=== PATIENT | female | born 1990 | race Caucasian/White ===

== ENCOUNTER 2016-08-30 00:50 | Inpatient (IN) | payer SELFPAY ==
[~2016-08-30] VITALS: Ht 165.1 cm; Wt 90.5 kg
[2016-08-30 01:01] VITALS: Ht 165.1 cm; Wt 90.5 kg
[2016-08-30 01:14] VITALS: BP 155/107; PULSE 76; RESP 18
[2016-08-30] MEDS ORDERED: PREN1TAB62 PO (01:15)
--- NOTE | 2016-08-30 01:43 | HP ---
Date/Time of Note Date/Time of Note DATE: 08/30/16 TIME: 01:36 OB - History Hx of Present Free Text/Dictation 26yo at 39+6 presenting with painful UCs since 1999 yesterday. Reports normal FM, denies MUNOZ, visual changes, RUQ pain, LOF or VB. care notable for LTC in 3rd trimester and polyhydramnios which resolved. Normal GLT Hx of NSVDx3 w/o complications Hx of open cholecystectomy in 2013 in [place] Estimated Due Date: Aug 31, 2016 : 4 Para: 3 Care: Limited Care Obstetrical Complications: None Medical Complications: None Past Family/Social History * Past Medical, Surgical, Family and Obstetric Histories reviewed from chart. Blood Type: A+ Rubella: immune RPR/VDRL: Negative GBS Status: Negative (07/27/16) HBsAG: Negative OB Admission Exam Vital Signs Vital Signs T 98.3 BP 155/107-> 130/91 P 76 RR 18 Physical Exam HEENT: WNL Heart: Rhythm Normal Lungs: Clear Abdomen: WNL Extremities: Normal Reflexes: Normal (2+) Cervical Dilatation: 4cm Effacement: 50% Station: -3 Membranes: Intact (BBOW) Heart Rate: 130's Accelerations: Accelerations Present Decelerations: Variable Decelerations (x1) Varibility: Moderate Contractions on Admission: < 5 Minutes Apart OB Assessment/Plan Other Assessment: Multiparous at Term Early Labor Elevated BPs w/o sxs of PreEclampsia Other plan: Expectant labor management CEFM and toco PIH Labs and urinalysis ordered for new onset elevated BPs ( chart reviewed and BPs wnl during limited clinic visits) No indication for seizure ppx with Magnesium Sulfate at this time. Will consider if BPs worsen, pt begins to have sxs or based on lab results No indication for GBS ppx at this time. GBS expires tomorrow on 08/31/16 Pt made aware of options for pain control and will decide as labor progresses Plan d/w pt. Questions answered to her satisfaction MEI NINO MD Aug 30, 2016 01:43
[2016-08-30] MEDS: LACTATED RINGER'S 1,000 ML IV SCH ×4 (01:55→08:03)
[2016-08-30] MEDS ORDERED: LACTATED RINGER'S 1,000 ML IV PRN (02:05)
[2016-08-30 02:13] LABS: ADD SCAN DIFF NO; ADD UMIC YES; URINE BILIRUBIN (Dip) NEGATIVE (NEGATIVE); URINE BLOOD (Dip) 3+ (NEGATIVE); URINE COLOR LT. YELLOW (YELLOW); URINE GLUCOSE (Dip) NEGATIVE (NEGATIVE); URINE KETONES (Dip) NEGATIVE (NEGATIVE); URINE LEUKOCYTE ESTERASE (Dip) NEGATIVE (NEGATIVE); URINE NITRITE (Dip) NEGATIVE (NEGATIVE); URINE TOTAL PROTEIN (Dip) NEGATIVE (NEGATIVE); URINE UROBILINOGEN (Dip) 0.2 E.U./dL (0.1-1.0)
[2016-08-30 02:15] LABS: BASOPHILS % 0.2 % (0.0-2.0); EOSINOPHILS # 0.1 10^3/ul (0.0-0.5); EOSINOPHILS % 1.1 % (0.0-7.0); HEMATOCRIT 37.4 % (37.0-47.0); HEMOGLOBIN 12.3 g/dl (12.0-16.0); LYMPHOCYTES # 2.3 10^3/ul (0.8-2.9); LYMPHOCYTES % 17.3 % (15.0-51.0); MEAN CORPUSCULAR HEMOGLOBIN 29.3 pg (29.0-33.0); MEAN CORPUSCULAR HGB CONC 32.9 g/dl (32.0-37.0); MEAN PLATELET VOLUME 11.8 fl (7.4-10.4); MONOCYTES % 7.2 % (0.0-11.0); NEUTROPHIL # 9.8 10^3/ul (1.6-7.5); NEUTROPHILS % 73.9 % (39.0-77.0); PLATELET COUNT 230 10^3/UL (140-415); RED CELL DISTRIBUTION WIDTH 12.6 % (11.5-14.5); WHITE BLOOD COUNT 13.3 10^3/ul (4.8-10.8)
[2016-08-30] MEDS ORDERED: LACTATED RINGER'S 1,000 ML IV SCH (02:19)
[2016-08-30 02:21] LABS: BACTERIA,URINE MODERATE; SQUAMOUS EPITHELIAL CELL,UR FEW
[2016-08-30 02:24] LABS: INR 0.95; PROTIME 12.7 Sec (12.2-14.2)
[2016-08-30 02:25] LABS: PARTIAL THROMBOPLASTIN TIME 28.2 Sec (25.0-35.0)
[2016-08-30] MEDS ORDERED: OXYTOCIN 30 UNITS/LR 500 ML IV SCH ×2 (02:30)
[2016-08-30] MEDS ORDERED: ACETAMINOPHEN/CODEINE #3 TAB PO PRN ×3 (02:30→10:30)
[2016-08-30] MEDS ORDERED: BUTORPHANOL 2 MG INJ IV PRN ×2 (02:30)
[2016-08-30] MEDS ORDERED: MISOPROSTOL 200 MCG TAB PR PRN (02:30)
[2016-08-30] MEDS ORDERED: IBUPROFEN 600 MG TAB PO PRN (02:30)
[2016-08-30] MEDS ORDERED: OXYTOCIN 30 UNITS/LR 500 ML IV PRN (02:30)
[2016-08-30] MEDS ORDERED: METHYLERGONOVINE 0.2 MG INJ IM PRN (02:30)
[2016-08-30] MEDS ORDERED: LIDOCAINE 1% (MPF) 30 ML INJ INJ PRN (02:30)
[2016-08-30] MEDS ORDERED: CARBOPROST 250 MCG INJ IM PRN (02:30)
[2016-08-30 02:35] LABS: ALBUMIN 3.3 g/dl (3.3-4.9)
[2016-08-30 02:36] LABS: POTASSIUM 3.9 mmol/L (3.5-5.1)
[2016-08-30 02:38] LABS: BILIRUBIN,INDIRECT 0.1 mg/dl (0-1.1); BILIRUBIN,TOTAL 0.1 mg/dl (0.2-1.3); CREATININE 0.55 mg/dl (0.44-1.00); TOTAL PROTEIN 6.6 g/dl (6.1-8.1)
[2016-08-30 02:39] LABS: CALCIUM 8.9 mg/dl (8.4-10.2)
[2016-08-30] MEDS ORDERED: FENTAnyl 2MCG/ML-ROPIV 0.2% 100 ML ONE (04:31)
[2016-08-30] MEDS ORDERED: NALOXONE (0.4 MG/ML) INJ IV PRN (05:30)
[2016-08-30] MEDS ORDERED: FENTAnyl 2MCG/ML-ROPIV 0.2% 100 ML BAG EPI SCH (05:30)
[2016-08-30] MEDS ORDERED: KETOROLAC 30 MG INJ IV PRN (05:30)
[2016-08-30] MEDS ORDERED: ONDANSETRON 4 MG INJ IV PRN ×2 (05:30→10:30)
[2016-08-30] MEDS ORDERED: DIPHENHYDRAMINE 50 MG INJ IV PRN (05:30)
--- NOTE | 2016-08-30 08:02 | LDN ---
Date/Time of Note Date/Time of Note DATE: 08/30/16 TIME: 07:59 Delivery Summary Normal spontaneous vaginal delivery of a baby girl from JUSTO position shoulders delivered with no difficulty body to follow cord clamped after stopped pulsation placenta spontaneous expulsion inspected complete, no perineal laceration estimated blood loss 200 mL Placenta Delivered: Spontaneously Perineum intact?: Yes Anesthesia type: Epidural Sponge & Needle done & correct: Yes All needle counts correct: Yes Any foreign bodies felt in the: No Problems: JOSE F ESPOSITO MD Aug 30, 2016 08:02
[2016-08-30] MEDS: OXYTOCIN 30 UNITS/LR 500 ML IV SCH ×2 (10:18→14:18)
[2016-08-30] MEDS ORDERED: LANOLIN 7 GM TUBE TOP PRN (10:30)
[2016-08-30] MEDS ORDERED: OXYCODONE/ASPIRIN (4.88/325) TAB PO PRN (10:30)
[2016-08-30] MEDS ORDERED: BENZOCAINE 20% 56 ML SPRAY TOP PRN (10:30)
[2016-08-30] MEDS ORDERED: DIBUCAINE 1% 30 GM OINT PR PRN (10:30)
[2016-08-30] MEDS ORDERED: WITCH HAZEL/GLYCERIN PAD PR PRN (10:30)
[2016-08-30 10:45] VITALS: BP 121/75; PULSE 83; RESP 18
[2016-08-30] MEDS: IBUPROFEN 600 MG TAB PO SCH ×3 (11:48→23:20)
[2016-08-30 16:00] VITALS: BP 132/87; PULSE 84; RESP 18
[2016-08-30] MEDS ORDERED: DIPHTH/TET/ACEL PERTUSS (ADULT) 0.5 ML VIAL IM* ONE (17:00)
[2016-08-30 19:40] VITALS: BP 103/60; PULSE 88; RESP 19
[2016-08-30 20:00] VITALS: BP 123/62; PULSE 75; RESP 20
[2016-08-30] MEDS: SENNA/DOCUSATE NA (8.6MG/50MG) TAB PO SCH (20:47)
[2016-08-31 00:10] VITALS: BP 112/66; PULSE 78; RESP 17
[2016-08-31 04:10] VITALS: BP 115/74; PULSE 75; RESP 18
[2016-08-31] MEDS: IBUPROFEN 600 MG TAB PO SCH ×4 (05:18→23:44)
[2016-08-31 07:44] VITALS: BP 125/56; PULSE 79; RESP 17
[2016-08-31] MEDS: OXYCODONE/ASPIRIN (4.88/325) TAB PO PRN ×2 (07:44→21:27)
[2016-08-31 08:14] LABS: ADD SCAN DIFF NO
[2016-08-31 08:25] LABS: BASOPHILS % 0.2 % (0.0-2.0); EOSINOPHILS # 0.1 10^3/ul (0.0-0.5); EOSINOPHILS % 1.3 % (0.0-7.0); HEMATOCRIT 33.6 % (37.0-47.0); HEMOGLOBIN 11.2 g/dl (12.0-16.0); LYMPHOCYTES # 2.3 10^3/ul (0.8-2.9); LYMPHOCYTES % 20.6 % (15.0-51.0); MEAN CORPUSCULAR HEMOGLOBIN 29.7 pg (29.0-33.0); MEAN CORPUSCULAR HGB CONC 33.3 g/dl (32.0-37.0); MEAN CORPUSCULAR VOLUME 89.1 fl (82.0-101.0); MEAN PLATELET VOLUME 12.1 fl (7.4-10.4); MONOCYTE # 0.6 10^3/ul (0.3-0.9); MONOCYTES % 5.6 % (0.0-11.0); PLATELET COUNT 211 10^3/UL (140-415); RED BLOOD COUNT 3.77 10^6/ul (4.20-5.40); RED CELL DISTRIBUTION WIDTH 12.7 % (11.5-14.5); WHITE BLOOD COUNT 11.1 10^3/ul (4.8-10.8)
[2016-08-31] MEDS: SENNA/DOCUSATE NA (8.6MG/50MG) TAB PO SCH ×2 (08:35→21:22)
[2016-08-31] MEDS ORDERED: INFLUENZA VIRUS VACCINE 0.5 ML SYG IM* ONE (12:00)
--- NOTE | 2016-08-31 12:42 | PN ---
Date/Time of Note Date/Time of Note DATE: 08/31/16 TIME: 12:41 OB Subjective Subjective Subjective day 1 Afebrile vital signs stable, abdomen soft uterus firm lochia normal extremity normal Laboratory Tests Test 08/31/16 07:24 Basophils # 0.010^3/ul Basophils % 0.2% Eosinophils # 0.110^3/ul Eosinophils % 1.3% Hematocrit 33.6% Hemoglobin 11.2g/dl Lymphocytes # 2.310^3/ul Lymphocytes % 20.6% Mean Corpuscular Hemoglobin 29.7pg Mean Corpuscular Hemoglobin Concent 33.3g/dl Mean Corpuscular Volume 89.1fl Mean Platelet Volume 12.1fl Monocytes # 0.610^3/ul Monocytes % 5.6% Neutrophils # 8.010^3/ul Neutrophils % 72.0% Nucleated Red Blood Cells # 0.010^3/ul Nucleated Red Blood Cells % 0.0/100WBC Platelet Count 25280^3/UL Red Blood Count 3.7710^6/ul Red Cell Distribution Width 12.7% White Blood Count 11.110^3/ul Current Medications Medications (Trade) Dose Ordered Sig/Alisia Route PRN Reason Start Time Stop Time Status Last Admin Dose Admin Lactated Ringer's (Lr) 1,000 ml @ 500 mls/hr Q2H IV 08/30/16 01:16 08/30/16 10:22 DC 08/30/16 01:55 Butorphanol Tartrate (Stadol) 1 mg Q2H PRN IV PAIN 08/30/16 02:30 08/30/16 10:22 DC Butorphanol Tartrate (Stadol) 2 mg Q2H PRN IV PAIN 08/30/16 02:30 08/30/16 10:23 DC Lidocaine 30 ml 30 ml ONCE PRN INJ EPISIOTOMY/TEARING 08/30/16 02:30 08/30/16 10:23 DC Oxytocin/Lactated Ringer's 500 ml @ 125 mls/hr ONCE -MAY REPEAT X1 IV 08/30/16 02:30 08/30/16 10:23 DC 08/30/16 08:16 Oxytocin/Lactated Ringer's 500 ml @ 125 mls/hr ONCE IV 08/30/16 02:30 08/30/16 10:23 DC 08/30/16 08:17 Ibuprofen (Motrin) 600 mg ONCE PRN PO Mild Pain (Pain Score 1-3) 08/30/16 02:30 08/30/16 10:23 DC 08/30/16 09:36 Acetaminophen/ Codeine Phosphate 2 tab 2 tab ONCE PRN PO Moderate to Severe Pain (4-10) 08/30/16 02:30 08/30/16 10:23 DC Lactated Ringer's 1,000 ml @ 2,000 mls/hr Q30M PRN IV PRE-EPIDURAL BOLUS 08/30/16 02:05 08/30/16 10:23 DC 08/30/16 04:17 Oxytocin/Lactated Ringer's 500 ml @ 0 mls/hr ONCE PRN IV For Hemorrhage Management 08/30/16 02:30 08/30/16 10:23 DC Methylergonovine Maleate (Methergine) 0.2 mg ONCE PRN IM VAGINAL BLEEDING 08/30/16 02:30 08/30/16 10:23 DC Carboprost Tromethamine (Hemabate) 250 mcg ONCE PRN IM VAGINAL BLEEDING 08/30/16 02:30 08/30/16 10:23 DC Misoprostol 1000 mcg 1,000 mcg ONCE PRN NC VAGINAL BLEEDING 08/30/16 02:30 08/30/16 10:23 DC Lactated Ringer's 1,000 ml @ 125 mls/hr Q8H IV 08/30/16 02:19 08/30/16 10:22 DC 08/30/16 05:39 Fentanyl/ Ropivacaine 100 ml @ ud STK-MED ONCE .ROUTE 08/30/16 04:31 08/30/16 04:32 DC Naloxone HCl (Narcan) 0.1 mg Q2M PRN IV FOR RESP RATE 8 OR LESS 08/30/16 05:30 08/30/16 10:22 DC Ketorolac Tromethamine (Toradol) 30 mg Q6H PRN IV PAIN 08/30/16 05:30 08/30/16 10:22 DC Diphenhydramine HCl (Benadryl) 25 mg Q6H PRN IV ITCHING 08/30/16 05:30 08/30/16 10:23 DC Ondansetron HCl (Zofran Inj) 4 mg Q6H PRN IV NAUSEA AND/OR VOMITING 08/30/16 05:30 08/30/16 10:23 DC Fentanyl/ Ropivacaine 100 ml 100 ml EPIDURAL INFUSION EPI 08/30/16 05:30 08/30/16 10:23 DC Oxytocin/Lactated Ringer's 500 ml @ 125 mls/hr Q4H IV 08/30/16 10:18 08/30/16 18:17 DC Ibuprofen (Motrin) 600 mg Q6 PO 08/30/16 12:00 08/31/16 12:21 Acetaminophen (Tylenol Tab) 650 mg Q4H PRN PO PAIN LEVEL 1-5 08/30/16 10:30 Acetaminophen/ Codeine Phosphate (Tylenol No.3) 1 tab Q4H PRN PO PAIN LEVEL 1-5 08/30/16 10:30 Acetaminophen/ Codeine Phosphate (Tylenol No.3) 2 tab Q4H PRN PO PAIN LEVEL 6-10 08/30/16 10:30 08/30/16 15:43 Oxycodone/Aspirin (Percodan) 1 tab Q3H PRN PO PAIN LEVEL 1-5 08/30/16 10:30 Oxycodone/Aspirin (Percodan) 2 tab Q3H PRN PO PAIN LEVEL 6-10 08/30/16 10:30 08/31/16 07:44 Ondansetron HCl (Zofran Inj) 4 mg Q6H PRN IV NAUSEA AND/OR VOMITING 08/30/16 10:30 Senna/Docusate Sodium (Senokot-S) 1 tab BID PO 08/30/16 21:00 08/31/16 08:35 Witch Keysha/ Glycerin (Tucks Pads) 1 pad BEDSIDE MEDICATION PRN NC HEMORRHOID/EPISIOTMY PAIN 08/30/16 10:30 08/30/16 11:48 Benzocaine (Dermoplast Prospect) 1 spray BEDSIDE MEDICATION PRN TOP HEMORRHOID/EPISIOTMY PAIN 08/30/16 10:30 08/30/16 11:48 Dibucaine (Nupercainal) 1 applic BEDSIDE MEDICATION PRN NC HEMORRHOID/EPISIOTMY PAIN 08/30/16 10:30 Lanolin ([id number]) 1 applic BEDSIDE MEDICATION PRN TOP BEDSIDE FOR SHANELL TO NIPPLES 08/30/16 10:30 08/30/16 11:49 Measles/Mumps/ Rubella Vaccine Live (Mmr Ii Vaccine) 0.5 ml ONCE ONCE SC* 09/01/16 09:00 09/01/16 09:01 Influenza Virus Vaccine (Fluzone) 0.5 ml ONCE ONCE IM* 08/31/16 12:00 08/31/16 12:01 DC Diphtheria/ Tetanus/Acell Pertussis (Adacel) 0.5 ml ONCE ONCE IM* 08/30/16 17:00 08/30/16 17:03 DC 08/30/16 18:49 JOSE F ESPOSITO MD Aug 31, 2016 12:42
[2016-08-31 16:00] VITALS: BP 120/86; PULSE 74; RESP 19
[2016-09-01 03:27] VITALS: BP 121/64; PULSE 74; RESP 20
[2016-09-01] MEDS: IBUPROFEN 600 MG TAB PO SCH ×2 (05:21→13:05)
[2016-09-01 07:45] VITALS: BP 125/83; PULSE 71; RESP 16
[2016-09-01] MEDS: SENNA/DOCUSATE NA (8.6MG/50MG) TAB PO SCH (09:00)
[2016-09-01] MEDS ORDERED: MEASLES,MUMPS,RUBELLA VACCINE INJ SC* ONE (09:00)
[2016-09-01] MEDS: ACETAMINOPHEN 325 MG TAB PO PRN ×2 (09:15→15:49)
[2016-09-01 15:45] VITALS: BP 126/82; PULSE 68; RESP 18
--- NOTE | 2016-09-01 16:29 | PD.PPDC ---
[facility] Discharge Instruction Condition Patient Condition: Good Diet Diet: Resume Regular Diet Activity/Restrictions Activity: Normal Activity May Shower Restrictions: No Exercising No Lifting No Driving No Sexual Activity Nothing in the Vagina No Hoodsport No Tampons, douche Follow-up Follow-up with Physician: 2, Week/Weeks Return to clinic for [employer] Instructions: Fever greater than 101 Worsening abdominal pain Excessive Vaginal Bleeding More than 2 pads per hour JOSE F ESPOSITO MD Sep 01, 2016 16:28
--- NOTE | 2016-09-01 16:31 | DS ---
Date/Time of Note Date/Time of Note DATE: 09/01/16 TIME: 16:29 Obstetrical Discharge Record Final Diagnosis Final Diagnosis: Term delivered Vaginal Delivery Obstetrical Delivery: Spontaneous Condition on Discharge Physical Assessment Last Vitals: Day 2 post normal vaginal delivery, afebrile, vital signs stable, abdomen soft, uterus firm, lochia normal, extremity normal patient discharged home with follow -up instructions to be seen at the clinic in 2 weeks Voiding: Yes Bowel Movement: Yes Breast: Soft, non-tender, Filling Calf Tenderness: No Patient Condition: Good JOSE F ESPOSITO MD Sep 01, 2016 16:31
== END 2016-09-01 18:13 | disposition home or self-care (01) | DRG 775 ==
LOC: L-D 00:50 → OBT 00:50 → L-D 01:20 → PP1 10:32
PROVIDERS: ADMIT Obstetrics & Gynecology; ATTEND Obstetrics & Gynecology
PROC: 10E0XZZ Delivery of Products of Conception, External Approach (ICD-10-PCS; principal; 2016-08-30)
PROC: 3E0234Z Introduction of Serum, Toxoid and Vaccine into Muscle, Percutaneous Approach (ICD-10-PCS; 2016-08-30)
PROC: 3E0234Z Introduction of Serum, Toxoid and Vaccine into Muscle, Percutaneous Approach (ICD-10-PCS; 2016-08-31)
DX: O80 Encounter for full-term uncomplicated delivery (principal); Z3A.39 39 weeks gestation of pregnancy; Z37.0 Single live birth; Z23 Encounter for immunization
CPT/HCPCS: 36415; 62319; 80053; 81001; 81003; 84560; 85025; 85610; 85730; 86592; 86900; 86901; 87086; 90686; 90715; G0463; J2590; J3010; J7120